=== PATIENT | male | born 1970 | race Two or more races ===

== ENCOUNTER 2024-05-27 11:50 | Day surgery (SDC) | payer MEDICAID, SELFPAY ==
[2024-05-26 14:59] VITALS: BMI 32.3
[2024-05-27] VITALS (9 sets, daily range): BP systolic 102–136; BP diastolic 57–85; PULSE 65–74; RESP 12–18; TEMP 36.5–36.6; O2SAT 92–97; BMI 32.3
[2024-05-27 13:12] LABS: Alanine Aminotransferase 39 U/L (10-49); Albumin, Serum 4.5 gm/dL (3.5-5.0); Albumin/Globulin Ratio 1.6 (1.2-2.2); Alkaline Phosphatase 112 U/L (46-116); Anion Gap 10 (7-16); Aspartate Amino Transferase 35 U/L (0-34); BUN/Creatinine Ratio 16 Ratio (12-20); Bilirubin,Total 0.7 mg/dL (0.3-1.2); Blood Urea Nitrogen 13 mg/dL (9-23); Calcium 9.7 mg/dL (8.3-10.6); Calcium (Corrected) 9.7 mg/dL (8.5-10.1); Carbon Dioxide 27.3 mMol/L (20.0-31.0); Chloride 106 mMol/L (98-107); Creatinine (Component) 0.8 mg/dL (0.6-1.3); Estimated Creatinine Clearance 115.2 mL/min (>60); Globulin 2.8 gm/dL (2.3-3.5); Glucose 152 mg/dL (74-106); Osmolality,Calculated 288 (275-295); Potassium 3.6 mMol/L (3.4-5.1); Sodium 143 mMol/L (136-145); Total Protein 7.3 gm/dL (5.7-8.2); eGFR > 60 See Note
--- NOTE | 2024-05-27 13:59 | SUR.PHASEII ---
1341 patient is awake, alert, breathing unlabored, s/p colonoscopy under MAC anesthesia. Report received from Ema LIN and Dr. Phelps, patient passing gas.
--- NOTE | 2024-05-27 14:49 | SUR.PHASEII ---
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
== END 2024-05-27 14:47 | disposition home or self-care (01) ==
PROVIDERS: Anesthesiology; Referring Provider Surgery; Visit Provider Surgery
PROC: 0DBE8ZX Excision of Large Intestine, Via Natural or Artificial Opening Endoscopic, Diagnostic (ICD-10-PCS; CPT 45380; principal; 2024-05-27 14:30)
DX: Z12.11 Encounter for screening for malignant neoplasm of colon (principal)
CPT/HCPCS: 45378; 36415; 80053; A4217; A4649

== ENCOUNTER 2024-09-21 15:03 | Emergency (ER) | payer MEDICAID, SELFPAY ==
[2024-09-21 15:11] VITALS: BP 134/87; PULSE 73; RESP 20; TEMP 37.2; O2SAT 95
--- NOTE | 2024-09-21 15:39 | EDNOTE_ITS ---
ED Recheck Abnl Lab Rx-RME/HPI General Chief Complaint: Recheck/Abnormal Lab/Rx Stated Complaint: PRESCRIPTION MEDICATIONS RAN OUT Time Seen by Provider: 09/21/24 15:14 Arrival date/time: 09/21/24 15:03 54-year-old male with a history of polysubstance abuse acute renal failure hypertension and hyperlipidemia reports for prescription refill. Patient states that he ran out of his medication on 16 September and has not been able to get them refilled with issues with the pharmacy. He currently denies any suicidal ho micidal ideation shortness of breath chest pain dizziness blurry vision ringing ears nausea or vomiting. Patient has no other concerns today with the exception of filling prescriptions Limitations: no limitations Related Data Home Medications ?Medication ?Instructions ?Recorded ?Confirmed amlodipine 5 mg tablet 5 mg PO .QHS 05/27/24 atorvastatin 20 mg tablet 20 mg PO QDAY 05/27/2405/27 diclofenac sodium 1 % topical gel 2.25 inch topical BI D 05/27/24 05/27/24 haloperidol 10 mg tablet 10 mg PO TID 05/27/24 hydroxyzine pamoate 50 mg capsule 50 mg PO TID 5 05/27/24 metformin 500 mg tablet 500 mg PO BID 05/27/2405/27 mirtazapine 30 mg tablet 30 mg PO .QHS 05/27/2405/27 olanzapine 20 mg tablet 20 mg PO .QHS 05/27/2405/27 paroxetine HCl 12.5 mg 25 mg PO QAM 05/27/24 tablet,extended release 24 hr propranolol 20 mg tablet 20 mg PO TID 05/27/24 trihexyphenidyl 2 mg tablet 2 mg PO .QHS 05/27/2404/30 Previous Rx's ?Medication ?Instructions ?Recorded amlodipine 5 mg tablet 5 mg PO QDAY #30 tabs atorvastatin 20 mg tablet 20 mg PO QDAY #30 tabs 09/21 mirtazapine 30 mg tablet 30 mg PO .QHS #30 tabs 09/21 olanzapine 20 mg tablet 20 mg PO QDAY #30 tabs 09/21 paroxetine HCl 12.5 mg 12.5 mg PO QAM #30 tabs 08/28 10/21 tablet,extended release 24 hr trihexyphenidyl 2 mg tablet 2 mg PO BID #60 tabs 09/21 Allergies Allergy/AdvReac Type Severity Reaction Status Date / Time No Known Allergies Allergy Verified 09/21/24 15:07 Review of Systems Constitutional Constitutional: Denies chills, Denies fever(s) and Denies headache(s) ENT Ears, Nose, Mouth, and Throat: Denies headache(s) Cardiovascular Cardiovascular: Denies chest pain and Denies dyspnea Respiratory Respiratory: Denies dyspnea and Denies hemoptysis Gastrointestinal Gastrointestinal: Denies nausea and Denies vomiting Musculoskeletal Musculoskeletal: Denies back pain and Denies myalgias Integumentary/Breasts Skin/Breast: Denies sores and Denies wounds Neurologic Neurologic: Denies confusion and Denies headache(s) Psychiatric Psychiatric: Denies confusion, Denies homicidal ideation and Denies suicidal ideation Hematologic/Lymphatic Hematologic/Lymphatic: Denies easy bleeding and Denies easy bruising Past Medical History Past Medical History NEUROLOGIC: Negative Seizures CARDIAC: Negative Congestive Heart Failure RESPIRATORY: Negative Chronic Obstructive Pulmonary Disease (COPD) GENITOURINARY: Negative Renal Disease ENDOCRINE: Positive Diabetes Mellitus Type 2; Negative Diabetes Mellitus Type 1 HEMATOLOGIC: Negative Blood Disorders, Anemia or Clotting Problems OTHER HISTORY: Positive Shingles, Chicken Pox, Measles and Mumps; Negative Hospitalization, Down Syndrome, Developmental Delay, Falls, Blood Transfusions, Anesthesia Reactions, Human Immunodeficiency Virus (HIV) or Cancer Family History FAMILY HISTORY: Positive Family Cardiac Disorders; Negative Family Psychiatric Problems, Family Respiratory Disorders or Family Gastrointestinal Problems Surgical History SURGICAL: Negative Abdominal Surgery Social History SMOKING STATUS: Never smoker SUBSTANCE USE: methamphetamine ED Exam General Limitations: Present no limitations General appearance: Present alert and in no apparent distress Head Head exam: Present atraumatic Eye Eye exam: Present normal appearance, PERRL and EOMI ENT ENT exam: Present normal exam, normal oropharynx and mucous membranes moist Neck Neck exam: Present normal inspection, full ROM and trachea midline Chest Chest inspection: Present normal inspection and symmetric chest wall rise Respiratory Respiratory exam: Present normal lung sounds bilaterally Cardiovascular Cardiovascular exam: Present regular rate, normal rhythm and normal heart sounds Abdominal Exam Abdominal exam: Present soft and normal bowel sounds Extremities Exam Extremities exam: Present normal inspection and full ROM Back Exam Back exam: Present normal inspection and full ROM Neurological Exam Neurological exam: Present alert, oriented X3 and CN II-XII intact Psychiatric Psychiatric exam: Present normal affect and normal mood Skin Skin exam: Present warm, dry, intact and normal color Course Course Course Narrative: 54-year-old male with a history of psych disorders hypertension and hyperlipidemia I have advised patient that I will refill 30-day supply of all medications however he must follow-up with his primary care provider for future prescriptions patient verbalized understanding Quality Measures none Vital Signs Vital signs: Vital Signs Temperature 99.0 F 09/21/24 15:11 Pulse Rate 73 09/21/24 15:11 Respiratory Rate 20 09/21/24 15:11 Blood Pressure 134/87 H 09/21/24 15:11 Pulse Oximetry (%) 95 09/21/24 15:11 Oxygen Delivery Method Room Air 09/21/24 15:11 Recheck / Abnormal Lab / Rx Patient data External records reviewed:: None Clinical information provided by:: patient Social determinants that could affect healthcare access:: none Patient has the following chronic illnesses:: Depression, hypertension, hyperlipidemia How is presenting disease/condition affected by chronic disease/condition?: caused by Evaluation data The following diagnostics were reviewed and interpreted by me:: other (specify) Lab and/or radiology exams considered but not ordered:: N/A Interpretation Summary: N/A Medications / Prescriptions Medications or Prescriptions considered but not ordered:: N/A Medication administrations:: N/A Consultations Consultation(s) initiated? (list below): No Diagnosis Recheck Differential Diagnosis: encounter for medication refill Most likely diagnosis given after review of the tests above:: Encounter for medication refill Admission Indicated Admission indicated?: not indicated Admission Request Was there a request for admission?: No Disposition Plan Disposition Plan: Discharge Discharge Attestation Discharge Attestation: The patient and all family members were given an opportunity to ask questions and understood the discharge instructions. Discharge instructions specifically effects, indications for sooner follow up or return to the emergency department, and the expected course of current diagnosis. Patient condition: Stable Discharge Plan Plan Patient Disposition: HOME (Self Care) Prescriptions/Referrals Prescriptions/Med Rec: New olanzapine 20 mg tablet 20 mg PO QDAY Qty: 30 0RF trihexyphenidyl 2 mg tablet 2 mg PO BID Qty: 60 0RF Rx Instructions: give with food (meal/snack) amlodipine 5 mg tablet 5 mg PO QDAY Qty: 30 0RF atorvastatin 20 mg tablet 20 mg PO QDAY Qty: 30 0RF mirtazapine 30 mg tablet 30 mg PO .QHS Qty: 30 0RF paroxetine HCl 12.5 mg tablet extended release 24 hr 12.5 mg PO QAM Qty: 30 0RF No Action paroxetine HCl 12.5 mg tablet extended release 24 hr 25 mg PO QAM hydroxyzine pamoate 50 mg capsule 50 mg PO TID haloperidol 10 mg tablet 10 mg PO TID propranolol 20 mg tablet 20 mg PO TID metformin 500 mg tablet 500 mg PO BID amlodipine 5 mg tablet 5 mg PO .QHS diclofenac sodium 1 % gel 2.25 inch TOPICAL BID mirtazapine 30 mg tablet 30 mg PO .QHS trihexyphenidyl 2 mg tablet 2 mg PO .QHS olanzapine 20 mg tablet 20 mg PO .QHS atorvastatin 20 mg tablet 20 mg PO QDAY Problem List Clinical Impression: Hypertension, Hyperlipidemia, Depression Patient/Caregiver Discharge Instructions Discharge Activity: activity as tolerated Education Materials: Blood Pressure Check Steps Additional Instructions: Take medication as directed and follow-up with your primary care provider as discussed Print Language: [place] Islander Stand Alone Forms: Charity Award Info., Patient Portal Info Letter
== END 2024-09-21 15:58 | disposition home or self-care (01) ==
PROVIDERS: Emergency Provider Family Medicine; PCP Family Medicine
DX: Z76.0 Encounter for issue of repeat prescription (principal); I10 Essential (primary) hypertension; E78.5 Hyperlipidemia, unspecified; F32.A Depression, unspecified
CPT/HCPCS: 99281

== ENCOUNTER 2024-09-27 15:18 | Emergency (ER) | payer MEDICAID, SELFPAY ==
[2024-09-27] VITALS (8 sets, daily range): BP systolic 112–157; BP diastolic 69–98; PULSE 64–81; RESP 14–22; TEMP 36.6–36.8; O2SAT 94–99; BMI 31.1
--- NOTE | 2024-09-27 15:57 | EKG_ITS ---
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
--- NOTE | 2024-09-27 15:57 | XR_ITS ---
Examination: PA lateral chest 2 views TECHNIQUE: Upright PA and lateral chest 2 views Date and time: September 27, 2024 1644 hours INDICATIONS: Shortness of breath today FINDINGS: Normal heart size. Lungs are clear. The osseous structures are intact IMPRESSION: No active disease
--- NOTE | 2024-09-27 16:07 | PD.EDRME ---
Rapid Medical Screening Exam RME Arrival date/time: 09/27/24 15:18 This is a 54-year-old male that comes in with complaints of dizziness feeling lightheaded after cleaning a pool outside. Patient also complains of shortness of breath. Patient denies chest pain. Patient states he was feeling fine prior to this event happening. Patient has a history of high blood pressure hyperlipidemia depression anxiety and methamphetamine use. Patient denies drug use. I have greeted and performed a focused initial assessment of this patient. Initial appropriate labs ordered at this time. A comprehensive ED assessment and evaluation of the patient and analysis of all test and completion of medical decision making process will be conducted by additional ED provider. Chief Complaint: Weakness Time Seen by Provider: 09/27/24 15:43 Vital signs: Vital Signs Temperature 98.2 F 09/27/24 15:49 Pulse Rate 81 09/27/24 15:49 Respiratory Rate 19 09/27/24 15:49 Blood Pressure 126/85 H 09/27/24 15:49 Pulse Oximetry (%) 99 09/27/24 15:49 Oxygen Delivery Method Room Air 09/27/24 15:49
--- NOTE | 2024-09-27 16:26 | PD.EDDIZZY ---
ED Dizzyness RME/HPI General Chief Complaint: Weakness Stated Complaint: WEAKNESS Time Seen by Provider: 09/27/24 15:43 Arrival date/time: 09/27/24 15:18 RME / HPI RME / HPI Narrative: 09/27/24 15:18 This is a 54-year-old male that comes in with complaints of dizziness feeling lightheaded after cleaning a pool outside. Patient also complains of shortness of breath. Patient denies chest pain. Patient states he was feeling fine prior to this event happening. Patient has a history of high blood pressure hyperlipidemia depression anxiety and methamphetamine use. Patient denies drug use. I have greeted and performed a focused initial assessment of this patient. Initial appropriate labs ordered at this time. A comprehensive ED assessment and evaluation of the patient and analysis of all test and completion of medical decision making process will be conducted by additional ED provider. DR. TAVAREZ MAIN ED EVALUATION: 54 year old male with history of hypertension, diabetes, hyperlipidemia, anxiety presents to the ED for acute onset dizziness that began earlier today while cleaning his swimming pool in preparation for a family gathering. He describes the dizziness as a spinning sensation that came on suddenly. Shortly after, he experienced nausea and vomited once. He also reports associated shortness of breath and a sensation of facial puffiness. He denies chest pain, diaphoresis, or prior similar episodes. Patient reports he has been drinking water throughout the day. No other associated symptoms reported. Patient denied wearing a hat while in the sun. Related Data Home Medications ?Medication ?Instructions ?Recorded ?Confirmed amlodipine 5 mg tablet 5 mg PO .QHS 05/27/24 05/27/24 atorvastatin 20 mg tablet 20 mg PO QDAY 05/27/24 05/27/24 diclofenac sodium 1 % topical gel 2.25 inch topical BID 05/27/24 05/27/24 haloperidol 10 mg tablet 10 mg PO TID 05/27/24 05/27/24 hydroxyzine pamoate 50 mg capsule 50 mg PO TID 05/27/24 05/27/24 metformin 500 mg tablet 500 mg PO BID 05/27/24 05/27/24 mirtazapine 30 mg tablet 30 mg PO .QHS 05/27/24 05/27/24 olanzapine 20 mg tablet 20 mg PO .QHS 05/27/24 05/27/24 paroxetine HCl 12.5 mg 25 mg PO QAM 05/27/24 05/27/24 tablet,extended release 24 hr propranolol 20 mg tablet 20 mg PO TID 05/27/24 05/27/24 trihexyphenidyl 2 mg tablet 2 mg PO .QHS 05/27/24 05/27/24 Previous Rx's ?Medication ?Instructions ?Recorded amlodipine 5 mg tablet 5 mg PO QDAY #30 tabs 09/21/24 atorvastatin 20 mg tablet 20 mg PO QDAY #30 tabs 09/21/24 mirtazapine 30 mg tablet 30 mg PO .QHS #30 tabs 09/21/24 olanzapine 20 mg tablet 20 mg PO QDAY #30 tabs 09/21/24 paroxetine HCl 12.5 mg 12.5 mg PO QAM #30 tabs 09/21/24 tablet,extended release 24 hr trihexyphenidyl 2 mg tablet 2 mg PO BID #60 tabs 09/21/24 Allergies Allergy/AdvReac Type Severity Reaction Status Date / Time No Known Allergies Allergy Verified 09/27/24 15:21 Review of Systems Review of Systems Narrative Review of Systems: Gen: No fever, no chills, no weight loss, +dizziness EYES: No discharge, no visual changes, no pain HEENT: No ear pain, no congestion, no sore throat PULM: +shortness of breath, no cough, no congestion CV: No chest pain, no palpitations, no chest tightness GI: + nausea, + vomiting, no diarrhea, no pain, no constipation : No frequency, no urgency,? no dysuria Musc/skel: No joint pain, no back pain Skin: No rash, no ecchymosis, no lesions Neuro: No weakness, no headache Past Medical History Past Medical History ENDOCRINE: Positive Diabetes Mellitus Type 2 OTHER HISTORY: Positive Chicken Pox, Measles and Mumps Family History FAMILY HISTORY: Positive Family Cardiac Disorders Surgical History SURGICAL: Negative Abdominal Surgery Social History SMOKING STATUS: Current some day smoker SUBSTANCE USE: methamphetamine ED Exam Narrative Physical exam: GENERAL APPEARANCE: Slight lethargy, oriented x4, no diaphoresis, nontoxic appearing HEENT: NC, AT. MMM. EOMI, clear conjunctiva, oropharynx clear. NECK: Supple without lymphadenopathy. No stiffness or restricted ROM. HEART: Normal rate and regular rhythm, normal S1/S1, no m/r/g LUNGS: CTAB, moving air well. No crackles or wheezes are heard. ABDOMEN: Soft, nontender, nondistended with good bowel sounds heard. BACK: No midline C/T/L spine pain or deformity, No CVAT, no obvious deformity. EXTREMITIES: Without cyanosis, clubbing or edema. MUSCULOSKELETAL: FROM of all major joints, no chest tenderness NEUROLOGICAL: Grossly nonfocal. Slight lethargy, oriented x4, moving all 4 extremities. CN not formally tested but appear grossly intact. Skin: Warm and dry, no diaphoresis, without any rash. Course Quality Measures none Orders Category Date Time Status EKG (ED ONLY) *Do not use* NOW Care 09/27/24 15:57 Completed EKG (ED ONLY) *Do not use* NOW Care 09/27/24 16:22 Completed EKG (ED Only) Stat Exams 09/27/24 15:57 Draft EKG (ED Only) Stat Exams 09/27/24 16:30 Draft XR chest 2V Stat Exams 09/27/24 15:57 Completed BNP [B-Type Natriuretic Peptide] Stat Lab 09/27/24 16:50 Completed CBC Stat Lab 09/27/24 16:50 Completed Comprehensive Metabolic Panel Stat Lab 09/27/24 16:50 Completed Drug Screen,Urine Stat Lab 09/27/24 16:23 Completed Troponin I Stat Lab 09/27/24 16:50 Completed Troponin I Stat Lab 09/27/24 19:00 Ordered Aspirin Med 09/27/24 16:21 Discontinued 325 mg PO X1 ONE Ondansetron Inj [Zofran Inj] Med 09/27/24 16:31 Discontinued 4 mg .ROUTE .STK-MED ONE Ondansetron Inj [Zofran Inj] Med 09/27/24 16:30 Discontinued 4 mg IVP X1 ONE Sodium Chloride 0.9% 1000 ml [Ns] 1,000 ml Med 09/27/24 16:21 Discontinued IV 999 mls/hr Sodium Chloride 0.9% 1000 ml [Ns] 1,000 ml Med 09/27/24 18:00 Active IV 999 mls/hr Reevaluation(s) Reevaluation #1: Patient reports feeling improved. He is requesting soda. At this time plan to repeat trop at 7PM and DC home if negative. ? Time: 17:57 Vital Signs Vital signs: Vital Signs Temperature 98.2 F 09/27/24 15:49 Pulse Rate 81 09/27/24 15:49 Respiratory Rate 19 09/27/24 15:49 Blood Pressure 126/85 H 09/27/24 15:49 Pulse Oximetry (%) 99 09/27/24 15:49 Oxygen Delivery Method Room Air 09/27/24 15:49 Pulse ox is 99% on room air which is adequate. Dizziness MDM Narrative MDM Narrative:: Lizbet Castro am scribing for and in the presence of Dr. Tavarez. Patient data External records reviewed:: [facility] previous records (I reviewed ED visit on 09/21/2024) Clinical information provided by:: patient Social determinants that could affect healthcare access:: mental health Patient has the following chronic illnesses:: hypertension, diabetes, hyperlipidemia, anxiety How is presenting disease/condition affected by chronic disease/condition?: exacerbated by Evaluation data The following diagnostics were reviewed and interpreted by me:: lab results, radiology exam(s) and EKG tracing(s) (EKG #1 09/27/2024 @ 1612 shows sinus rhythm, rate 72, slight inferior ST elevation. EKG #2 09/27/2024 @ 1638 shows sinus rhythm, rate 64, aVF appears improved. ) Lab and/or radiology exams considered but not ordered:: None Interpretation Summary: Ordering Physician: Marnie West NP Date of Service: 09/27/24 Procedure(s): XR chest 2V Accession Number(s): [id number] cc: Abhinav Lam MD; Peter Martin MD; Marnie West NP~ Examination: PA lateral chest 2 views TECHNIQUE: Upright PA and lateral chest 2 views Date and time: September 27, 2024 1644 hours INDICATIONS: Shortness of breath today FINDINGS: Normal heart size. Lungs are clear. The osseous structures are intact IMPRESSION: No active disease Dictated By: Peter Martin MD Signed By: <Electronically signed by Peter Martin MD in OV> 09/27/24 1721 Medications / Prescriptions Medications or Prescriptions considered but not ordered:: None Medication administrations:: Medication Administration History Sodium Chloride (Ns) 1,000 mls @ 999 mls/hr IV .Q1H1M ONE Stop: 09/27/24 19:00 Last Admin: 09/27/24 18:10 Dose: 999 mls/hr Documented By: CG Discontinued Medications Aspirin (Aspirin 325 Mg Tablet) 325 mg PO X1 ONE Stop: 09/27/24 16:22 Last Admin: 09/27/24 16:32 Dose: 325 mg Documented By: CG Sodium Chloride (Ns) 1,000 mls @ 999 mls/hr IV .Q1H1M ONE Stop: 09/27/24 17:21 Last Infusion: 09/27/24 17:33 Dose: Infused Documented By: Admin: 09/27/24 16:31 Dose: 999 mls/hr Documented By: CG Ondansetron HCl (Ondansetron Inj 2 Mg/Ml Inj 2 Ml) 4 mg IVP X1 ONE; Protocol Stop: 09/27/24 16:31 Last Admin: 09/27/24 16:38 Dose: 4 mg Documented By: CG Ondansetron HCl (Ondansetron Inj 2 Mg/Ml Inj 2 Ml) Confirm Administered Dose 4 mg .ROUTE .STK-MED ONE Stop: 09/27/24 16:32 Last Admin: 09/27/24 16:39 Dose: 4 mg Documented By: CG See above Consultations Consultation(s) initiated? (list below): No Diagnosis Dizziness Differential Diagnosis: benign paroxysmal positional vertigo, orthostatic hypotension and other (ID) Most likely diagnosis given after review of the tests above:: Heat exhaustion Admission Indicated Admission indicated?: not indicated Admission Request Was there a request for admission?: No Disposition Plan Disposition Plan: Discharge Discharge Attestation Discharge Attestation: The patient and all family members were given an opportunity to ask questions and understood the discharge instructions. Discharge instructions specifically effects, indications for sooner follow up or return to the emergency department, and the expected course of current diagnosis. Patient condition: Stable Discharge Plan Plan Patient Disposition: HOME (Self Care) Prescriptions/Referrals Prescriptions/Med Rec: No Action olanzapine 20 mg tablet 20 mg PO QDAY Qty: 30 0RF trihexyphenidyl 2 mg tablet 2 mg PO BID Qty: 60 0RF Rx Instructions: give with food (meal/snack) amlodipine 5 mg tablet 5 mg PO QDAY Qty: 30 0RF atorvastatin 20 mg tablet 20 mg PO QDAY Qty: 30 0RF mirtazapine 30 mg tablet 30 mg PO .QHS Qty: 30 0RF paroxetine HCl 12.5 mg tablet extended release 24 hr 12.5 mg PO QAM Qty: 30 0RF paroxetine HCl 12.5 mg tablet extended release 24 hr 25 mg PO QAM hydroxyzine pamoate 50 mg capsule 50 mg PO TID haloperidol 10 mg tablet 10 mg PO TID propranolol 20 mg tablet 20 mg PO TID metformin 500 mg tablet 500 mg PO BID amlodipine 5 mg tablet 5 mg PO .QHS diclofenac sodium 1 % gel 2.25 inch TOPICAL BID mirtazapine 30 mg tablet 30 mg PO .QHS trihexyphenidyl 2 mg tablet 2 mg PO .QHS olanzapine 20 mg tablet 20 mg PO .QHS atorvastatin 20 mg tablet 20 mg PO QDAY Referrals: Abhinav Lam MD [Primary Care Provider] - In 1 week Problem List Clinical Impression: Heat exhaustion Patient/Caregiver Discharge Instructions Education Materials: ED Heat Exhaustion Additional Instructions: If you are under the sun it also be useful to wear a hat particularly with a wide brim. Drink plenty of fluids. For the next 24 hours try to rest in the shade and not have contact with sun Print Language: [place]oth[place] Stand Alone Forms: Charity Award Info., Patient Portal Info Letter
--- NOTE | 2024-09-27 16:30 | EKG_ITS ---
[facility] Test Date: 2024-09-27 Pat Name: BRIDGET DUFFY Department: Room: - Gender: Male Manager Oncology: : 1970 Requested By: Pineda Jacques Order Number: [id number] Reading MD: Pineda Jacques Measurements Intervals [place] Rate: 72 P: 43 [place]: 167 QRS: 30 QRSD: 83 T: 29 QT: 371 QTc: 408 Interpretive Statements SINUS RHYTHM ST ELEVATION, CONSIDER INFERIOR INJURY [MARKED ST ELEVATION W/O NORMALLY INFLECTED T-WAVE IN II/aVF] ACUTE [place] Compared to ECG 09/27/2024 16:10:44 No significant changes /store/S0/[id number].pdf
[2024-09-27] MEDS: SODIUM CHLORIDE 0.9% 1000 ML 1,000 ML 999 ML IV ×2 (16:31→18:10)
[2024-09-27] MEDS: Aspirin 325 MG TABLET PO (16:32)
[2024-09-27] MEDS: ONDANSETRON INJ 2 MG/ML INJ 2 ML 4 MG IVP (16:38)
[2024-09-27] MEDS: ONDANSETRON INJ 2 MG/ML INJ 2 ML 4 MG (16:39)
[2024-09-27 16:43] LABS: Amphetamine/Methamp Scrn,U Negative (Negative); Barbiturate Screen,Urine Negative (Negative); Benzodiazepines Screen,Urine Negative (Negative); Benzoylecgonine Screen, Ur Negative (Negative); Fentanyl Screen,Urine Negative (Negative); Opiate Screen,Urine Negative (Negative); THC Screen,Urine Negative (Negative)
[2024-09-27 17:03] LABS: Basophils % (Auto) 0 % (0-2.5); Eosinophils # (Auto) 0.1 Thou/mm3 (0.0-0.5); Eosinophils % (Auto) 2 % (0-10); Hemoglobin 14.7 g/dL (13.5-16.0); Immature Granulocytes % (Auto) 1 % (0-0); Immature Granulocytes Auto 0.04 Thou/mm3 (0.00-0.00); Lymphocytes # (Auto) 2.1 Thou/mm3 (1.0-4.8); Lymphocytes % (Auto) 26 % (10-50); Mean Corpuscular HGB Conc 37.7 g/dl (31.0-37.0); Mean Corpuscular Hemoglobin 31.1 pg (25.0-35.0); Mean Corpuscular Volume 83 fL (80-100); Monocytes # (Auto) 0.5 Thou/mm3 (0.0-0.8); Monocytes % (Auto) 7 % (0-12); Neutrophils # (Auto) 5.4 Thou/mm3 (1.8-7.7); Neutrophils % (Auto) 65 % (37-80); Nucleated Red Blood Cell % 0 /100 WBC (0); Platelet Count 228 Thou/mm3 (140-440); RDW Standard Deviation 37.5 fL (35.1-43.9); Red Blood Count 4.72 Miln/mm3 (4.50-5.90); White Blood Count 8.2 Thou/mm3 (3.8-10.6)
[2024-09-27 17:20] LABS: Alanine Aminotransferase 39 U/L (10-49); Albumin, Serum 4.5 gm/dL (3.5-5.0); Albumin/Globulin Ratio 1.6 (1.2-2.2); Alkaline Phosphatase 134 U/L (46-116); Anion Gap 11 (7-16); Aspartate Amino Transferase 35 U/L (0-34); BUN/Creatinine Ratio 7 Ratio (12-20); Bilirubin,Total 0.7 mg/dL (0.3-1.2); Blood Urea Nitrogen 7 mg/dL (9-23); Calcium 9.1 mg/dL (8.3-10.6); Calcium (Corrected) 9.1 mg/dL (8.5-10.1); Chloride 103 mMol/L (98-107); Globulin 2.8 gm/dL (2.3-3.5); Glucose 221 mg/dL (74-106); Osmolality,Calculated 284 (275-295); Potassium 3.9 mMol/L (3.4-5.1); Sodium 140 mMol/L (136-145); Total Protein 7.3 gm/dL (5.7-8.2); Troponin I < 0.002 ng/mL (0.0-0.045); eGFR > 60 See Note
[2024-09-27 17:39] LABS: B-Type Natriuretic Peptide < 20 pg/mL (0-100)
[2024-09-27 19:21] LABS: Troponin I < 0.002 ng/mL (0.0-0.045)
== END 2024-09-27 19:54 | disposition home or self-care (01) ==
PROVIDERS: Nurse Practitioner Family; Emergency Provider Emergency Medicine; PCP Family Medicine
DX: R53.1 Weakness (principal); R53.83 Other fatigue; R06.02 Shortness of breath; R94.31 Abnormal electrocardiogram [ECG] [EKG]; I10 Essential (primary) hypertension; E78.5 Hyperlipidemia, unspecified; F17.210 Nicotine dependence, cigarettes, uncomplicated
CPT/HCPCS: 36415; 71046; 80053; 80307; 83880; 84484; 85025; 93005; 96360; 96361; 99284; J2405; J7030; A9270

== ENCOUNTER 2025-03-01 05:30 | Emergency (ER) | payer MEDICAID, SELFPAY ==
[2025-03-01 05:31] VITALS: BMI 30.3
[2025-03-01 05:34] VITALS: BP 133/74; PULSE 107; RESP 18; TEMP 36.7; O2SAT 97
--- NOTE | 2025-03-01 05:40 | XR_ITS ---
EXAMINATION: PA chest single view TECHNIQUE: Upright PA chest single view Date and time: March 06, 2025, 0546 hours INDICATIONS: Onset chest pain today. FINDINGS: Minimal prominence left ventricle. Mild vascular congestion. No lobar pneumonia or pulmonary edema. Osseous structures are intact IMPRESSION: No active disease
--- NOTE | 2025-03-01 05:41 | EKG_ITS ---
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
--- NOTE | 2025-03-01 05:41 | PD.EDRME ---
Rapid Medical Screening Exam E Arrival date/time: 03/01/25 05:30 This is a case of 55-year-old male who came in in the emergency room due to chest pain and shortness of breath patient felt anxious denies any suicidal homicidal ideation no hallucination Chief Complaint: Anxiety Vital signs: Vital Signs Temperature 98.1 F 03/01/25 05:34 Pulse Rate 107 H 03/01/25 05:34 Respiratory Rate 18 03/01/25 05:34 Blood Pressure 133/74 H 03/01/25 05:34 Pulse Oximetry (%) 97 03/01/25 05:34 Oxygen Delivery Method Room Air 03/01/25 05:34 Exam: Awake alert oriented x 4 no focal deficit GCS 15/15 clear breath sound normal rate regular rhythm no murmur patient have anxiety Clinical Impression: Chest pain anxiety
[2025-03-01 06:14] LABS: Basophils # (Auto) 0.0 Thou/mm3 (0.0-0.2); Basophils % (Auto) 0 % (0-2.5); Eosinophils # (Auto) 0.0 Thou/mm3 (0.0-0.5); Eosinophils % (Auto) 0 % (0-10); Hematocrit 38.3 % (41.0-53.0); Hemoglobin 13.5 g/dL (13.5-16.0); Immature Granulocytes Auto 0.04 Thou/mm3 (0.00-0.00); Lymphocytes # (Auto) 1.5 Thou/mm3 (1.0-4.8); Lymphocytes % (Auto) 14 % (10-50); Mean Corpuscular HGB Conc 35.2 g/dl (31.0-37.0); Mean Corpuscular Hemoglobin 30.5 pg (25.0-35.0); Mean Corpuscular Volume 87 fL (80-100); Monocytes # (Auto) 0.6 Thou/mm3 (0.0-0.8); Monocytes % (Auto) 5 % (0-12); Neutrophils # (Auto) 8.6 Thou/mm3 (1.8-7.7); Neutrophils % (Auto) 80 % (37-80); Nucleated Red Blood Cell # 0.00 Thou/mm3 (0.00-0.00); Nucleated Red Blood Cell % 0 /100 WBC (0); Platelet Count 292 Thou/mm3 (140-440); RDW Standard Deviation 41.0 fL (35.1-43.9); Red Blood Count 4.43 Miln/mm3 (4.50-5.90); White Blood Count 10.8 Thou/mm3 (3.8-10.6)
[2025-03-01 06:31] LABS: Alanine Aminotransferase 39 U/L (10-49); Albumin, Serum 5.2 gm/dL (3.5-5.0); Albumin/Globulin Ratio 2.0 (1.2-2.2); Alkaline Phosphatase 115 U/L (46-116); Anion Gap 12 (7-16); Aspartate Amino Transferase 42 U/L (0-34); B-Type Natriuretic Peptide 23 pg/mL (0-100); BUN/Creatinine Ratio 6 Ratio (12-20); Bilirubin,Total 0.8 mg/dL (0.3-1.2); Blood Urea Nitrogen 7 mg/dL (9-23); Calcium 10.0 mg/dL (8.3-10.6); Calcium (Corrected) 10.0 mg/dL (8.5-10.1); Carbon Dioxide 24.7 mMol/L (20.0-31.0); Chloride 101 mMol/L (98-107); Creatinine (Component) 1.1 mg/dL (0.6-1.3); Estimated Creatinine Clearance 80.4 mL/min (>60); Globulin 2.6 gm/dL (2.3-3.5); Glucose 116 mg/dL (74-106); Osmolality,Calculated 274 (275-295); Potassium 3.6 mMol/L (3.4-5.1); Sodium 138 mMol/L (136-145); Total Protein 7.8 gm/dL (5.7-8.2); Troponin I < 0.020 ng/mL (0.0-0.045); eGFR > 60 See Note
[2025-03-01 07:17] LABS: Collection Type, Urine Clean Catch
[2025-03-01 07:35] LABS: Bacteria,Urine Rare; Bilirubin,Urine Negative (Negative); Blood,Urine Negative (Negative); Clarity,Urine Clear (Clear/Hazy); Color,Urine Yellow (Lt Yel-Yel); Glucose, Urine Negative (Negative); Ketones,Urine 1+ (Negative); Leukocyte Esterase,Urine Negative (Negative); Nitrite,Urine Negative (Negative); PH,Urine 6.0 (5.0-7.0); Protein,Urine Trace (Neg - Trace); RBC,Urine 1 /hpf (0-3); Specific Gravity,Urine 1.025 (1.001-1.035); Squamous Epithelial Cell,Urine < 1 /hpf (0-5); Urobilinogen,Urine Negative mg/dL (0.0-1.0); WBC,Urine 2 /hpf (0-5)
--- NOTE | 2025-03-01 08:41 | EDNOTE_ITS ---
<Statement entered by Magdalene Cardenas MD - 03/03/25 17:56> As co-signing physician, I was present and available for consult prn. I concur with the plan and care as documented by the midlevel provider. ED Chest Pain RME/HPI General Chief Complaint: Anxiety Stated Complaint: ANXIETY Time Seen by Provider: 03/01/25 06:11 Source: patient Arrival date/time: 03/01/25 05:30 54-year-old male with a history of hypertension, hyperlipidemia, type 2 diabetes, presents to the emergency room with a chief complaint of chest pain, palpitations, shortness of breath x 1 day Mode of arrival: ambulatory Limitations: no limitations RME / HPI RME / HPI narrative: 03/01/25 05:30 This is a case of 55-year-old male who came in in the emergency room due to chest pain and shortness of breath patient felt anxious denies any suicidal homicidal ideation no hallucination Exam: Awake alert oriented x 4 no focal deficit GCS 15/15 clear breath sound normal rate regular rhythm no murmur patient have anxiety Impression: Chest pain anxiety Related Data Home Medications ?Medication ?Instructions ?Recorded ?Confirmed amlodipine 5 mg tablet 5 mg PO .QHS 05/27/24 atorvastatin 20 mg tablet 20 mg PO QDAY 05/27/2405/27 diclofenac sodium 1 % topical gel 2.25 inch topical BI D 05/27/24 05/27/24 haloperidol 10 mg tablet 10 mg PO TID 05/27/24 hydroxyzine pamoate 50 mg capsule 50 mg PO TID 5 05/27/24 metformin 500 mg tablet 500 mg PO BID 05/27/2405/27 mirtazapine 30 mg tablet 30 mg PO .QHS 05/27/2405/27 olanzapine 20 mg tablet 20 mg PO .QHS 05/27/2405/27 paroxetine HCl 12.5 mg 25 mg PO QAM 05/27/24 tablet,extended release 24 hr propranolol 20 mg tablet 20 mg PO TID 05/27/24 trihexyphenidyl 2 mg tablet 2 mg PO .QHS 05/27/2404/30 Previous Rx's ?Medication ?Instructions ?Recorded amlodipine 5 mg tablet 5 mg PO QDAY #30 tabs atorvastatin 20 mg tablet 20 mg PO QDAY #30 tabs 09/21 mirtazapine 30 mg tablet 30 mg PO .QHS #30 tabs 09/21 olanzapine 20 mg tablet 20 mg PO QDAY #30 tabs 09/21 paroxetine HCl 12.5 mg 12.5 mg PO QAM #30 tabs 08/28 10/21 tablet,extended release 24 hr trihexyphenidyl 2 mg tablet 2 mg PO BID #60 tabs 09/21 Allergies Allergy/AdvReac Type Severity Reaction Status Date / Time No Known Allergies Allergy Verified 09/27/24 15:21 Review of Systems Review of Systems Systems Reviewed: All systems reviewed, normal except as documented Constitutional Constitutional: Reports system reviewed and no additional complaints, except as documented, Denies fatigue, Denies fever(s), Denies headache(s) and Denies weakness Eyes Eyes: Reports system reviewed and no additional complaints, except as documented, Denies blurry vision and Denies change in vision ENT Ears, Nose, Mouth, and Throat: Reports system reviewed and no additional c omplaints, except as documented, Denies otalgia, Denies headache(s), Denies nasal congestion, Denies throat swelling and Denies vertigo Cardiovascular Cardiovascular: Reports system reviewed and no additional complaints, except as documented, Reports chest pain, Reports dyspnea, Denies dyspnea on exertion and Reports palpitations Respiratory Respiratory: Reports system reviewed and no additional complaints, except as documented, Reports chest congestion, Reports cough, Reports dyspnea, Denies dyspnea on exertion and Denies wheezing Gastrointestinal Gastrointestinal: Reports system reviewed and no additional complaints, except as documented, Denies abdominal pain, Denies cramping, Denies nausea and Denies vomiting Genitourinary Genitourinary: Reports system reviewed and no additional complaints, except as documented, Denies dysuria and Denies hematuria Musculoskeletal Musculoskeletal: Reports system reviewed and no additional complaints, except as documented and Denies back pain Integumentary/Breasts Skin/Breast: Reports system reviewed and no additional complaints, except as documented and Denies wounds Neurologic Neurologic: Reports system reviewed and no additional complaints, except as documented, Denies confusion, Denies headache(s), Denies lack of coordination, Denies vertigo and Denies weakness Psychiatric Psychiatric: Reports system reviewed and no additional complaints, except as documented, Denies anxiety, Denies confusion, Denies depression, Denies paranoia, Denies suicidal ideation and Denies tactile hallucinations Endocrine Endocrine: Reports system reviewed and no additional complaints, except as documented, Denies fatigue and Reports palpitations Hematologic/Lymphatic Hematologic/Lymphatic: Reports system reviewed and no additional complaints, except as documented and Denies lymphadenopathy Allergic/Immunologic Allergic/Immunologic: Reports system reviewed and no additional complaints, except as documented, Denies throat swelling, Denies urticaria and Denies wheezing Past Medical History Past Medical History NEUROLOGIC: Negative Seizures CARDIAC: Negative Congestive Heart Failure RESPIRATORY: Negative Chronic Obstructive Pulmonary Disease (COPD) GENITOURINARY: Negative Renal Disease ENDOCRINE: Positive Diabetes Mellitus Type 2; Negative Diabetes Mellitus Type 1 HEMATOLOGIC: Negative Blood Disorders, Anemia or Clotting Problems OTHER HISTORY: Positive Shingles, Chicken Pox, Measles and Mumps; Negative Hospitalization, Down Syndrome, Developmental Delay, Falls, Blood Transfusions, Anesthesia Reactions, Human Immunodeficiency Virus (HIV) or Cancer Family History FAMILY HISTORY: Positive Family Cardiac Disorders; Negative Family Psychiatric Problems, Family Respiratory Disorders or Family Gastrointestinal Problems Surgical History SURGICAL: Negative Abdominal Surgery Social History SMOKING STATUS: Never smoker SUBSTANCE USE: methamphetamine ED Exam General Limitations: Present no limitations General appearance: Present alert and in no apparent distress Head Head exam: Present atraumatic Eye Eye exam: Present normal appearance, PERRL and EOMI ENT ENT exam: Present normal exam, normal oropharynx and mucous membranes moist Neck Neck exam: Present normal inspection, full ROM and trachea midline Chest Chest inspection: Present normal inspection and symmetric chest wall rise Respiratory Respiratory exam: Present normal lung sounds bilaterally; Absent respiratory distress, wheezes, stridor, accessory muscle use or prolonged expiratory phase Cardiovascular Cardiovascular exam: Present regular rate, normal rhythm, normal heart sounds, +S1 and +S2; Absent bradycardia, tachycardia, irregular rhythm, systolic murmur, diastolic murmur, rubs, gallop, clicks or JVD Abdominal Exam Abdominal exam: Present soft and normal bowel sounds Extremities Exam Extremities exam: Present normal inspection and full ROM Back Exam Back exam: Present normal inspection and full ROM Neurological Exam Neurological exam: Present alert, oriented X3 and CN II-XII intact Psychiatric Psychiatric exam: Present normal affect and normal mood Skin Skin exam: Present warm, dry, intact and normal color Course Quality Measures none Orders Category Date Time Status EKG (ED ONLY) *Do not use* NOW Care 03/01/25 05:41 Completed EKG (ED Only) Stat Exams 03/01/25 05:41 Ordered XR chest 1V Stat Exams 03/01/25 05:40 Completed BNP [B-Type Natriuretic Peptide] Stat Lab 03/01/25 06:01 Completed CBC Stat Lab 03/01/25 06:01 Completed Comprehensive Metabolic Panel Stat Lab 03/01/25 06:01 Completed Troponin I Stat Lab 03/01/25 06:01 Completed Urinalysis Stat Lab 03/01/25 06:22 Completed LORazepam [Ativan] Med 03/01/25 05:40 Discontinued 1 mg PO X1 ONE Vital Signs Vital signs: Vital Signs Temperature 98.1 F 03/01/25 05:34 Pulse Rate 107 H 03/01/25 05:34 Respiratory Rate 18 03/01/25 05:34 Blood Pressure 133/74 H 03/01/25 05:34 Pulse Oximetry (%) 97 03/01/25 05:34 Oxygen Delivery Method Room Air 03/01/25 05:34 PROCEDURES: EKG Interpretation #1: Date of EK03/01/25 EKG Impression: Normal sinus rhythm Chest Pain MDM Narrative MDM Narrative:: 54-year-old male with a history of hypertension, hyperlipidemia, type 2 diabetes, presents to the emergency room with a chief complaint of chest pain, palpitations, shortness of breath x 1 day Patient is hemodynamically stable and in no apparent distress Physical examination shows strong and regular rhythm S1 and S2 noted no edema no clicks no gallops no murmurs Lung sounds are clear bilaterally there is no wheezing or any abnormal breath sounds EKG shows sinus rhythm. CBC CMP troponin were all within normal limits Chest x-ray was negative for any acute findings Patient was discharged and educated to follow-up with primary care provider in the next 24 to 48 hours and return to the emergency room for any evidence of worsening signs or symptoms Patient data External records reviewed:: [facility] previous records Clinical information provided by:: patient Social determinants that could affect healthcare access:: substance use Patient has the following chronic illnesses:: No chronic illness How is presenting disease/condition affected by chronic disease/condition?: no chronic disease Evaluation data The following diagnostics were reviewed and interpreted by me:: lab results and radiology exam(s) Lab and/or radiology exams considered but not ordered:: Labs and radiology exams considered and ordered Interpretation Summary: FINDINGS: Minimal prominence left ventricle. Mild vascular congestion. No lobar pneumonia or pulmonary edema. Osseous structures are intact IMPRESSION: No active disease Medications / Prescriptions Medications or Prescriptions considered but not ordered:: Medication given Medication administrations:: Medication Administration History Discontinued Medications Lorazepam (Lorazepam 0.5 Mg Tablet) 1 mg PO X1 ONE Stop: 03/01/25 05:41 Last Admin: 03/01/25 05:47 Dose: 1 mg Documented By: FRANCIS Medication given Consultations Consultation(s) initiated? (list below): No Diagnosis Chest Pain Differential Diagnosis: stable angina, unstable angina pectoris, atypical chest pain, costochondritis and chest pain Most likely diagnosis given after review of the tests above:: Chest pain Admission Indicated Admission indicated?: not indicated Admission Request Was there a request for admission?: No Disposition Plan Disposition Plan: Discharge Discharge Attestation Discharge Attestation: The patient and all family members were given an opportunity to ask questions and understood the discharge instructions. Discharge instructions specifically effects, indications for sooner follow up or return to the emergency department, and the expected course of current diagnosis. Patient condition: Stable Discharge Plan Plan Patient Disposition: HOME (Self Care) Discharge Disposition comment: Stable Prescriptions/Referrals Prescriptions/Med Rec: No Action olanzapine 20 mg tablet 20 mg PO QDAY Qty: 30 0RF trihexyphenidyl 2 mg tablet 2 mg PO BID Qty: 60 0RF Rx Instructions: give with food (meal/snack) amlodipine 5 mg tablet 5 mg PO QDAY Qty: 30 0RF atorvastatin 20 mg tablet 20 mg PO QDAY Qty: 30 0RF mirtazapine 30 mg tablet 30 mg PO .QHS Qty: 30 0RF paroxetine HCl 12.5 mg tablet extended release 24 hr 12.5 mg PO QAM Qty: 30 0RF paroxetine HCl 12.5 mg tablet extended release 24 hr 25 mg PO QAM hydroxyzine pamoate 50 mg capsule 50 mg PO TID haloperidol 10 mg tablet 10 mg PO TID propranolol 20 mg tablet 20 mg PO TID metformin 500 mg tablet 500 mg PO BID amlodipine 5 mg tablet 5 mg PO .QHS diclofenac sodium 1 % gel 2.25 inch TOPICAL BID mirtazapine 30 mg tablet 30 mg PO .QHS trihexyphenidyl 2 mg tablet 2 mg PO .QHS olanzapine 20 mg tablet 20 mg PO .QHS atorvastatin 20 mg tablet 20 mg PO QDAY Referrals: Abhinav Lam MD [Primary Care Provider, Family Practice] - In 1 week Problem List Clinical Impression: Chest pain Patient/Caregiver Discharge Instructions Education Materials: ED Chest Pain, Noncardiac Additional Instructions: Please follow-up with your primary care provider in the next 24 to 48 hours Your cardiac examination today was negative for any acute findings. For any evidence of worsening signs or symptoms return to emergency room immediately Print Language: [place] Island[place] Stand Alone Forms: Charity Award Info., Patient Portal Info Letter PA/BRANCHER Supervising Physician PA/BRANCHER Supervising Physician: Dr. Mcwilliams
== END 2025-03-01 08:35 | disposition home or self-care (01) ==
PROVIDERS: Emergency Provider Nurse Practitioner Family; PCP Family Medicine
DX: R07.9 Chest pain, unspecified (principal); E11.9 Type 2 diabetes mellitus without complications; E78.5 Hyperlipidemia, unspecified; F41.9 Anxiety disorder, unspecified; I10 Essential (primary) hypertension; Z79.84 Long term (current) use of oral hypoglycemic drugs
CPT/HCPCS: 36415; 71045; 80053; 81001; 83880; 84484; 85025; 93005; 99283; A9270

== ENCOUNTER 2025-03-01 10:51 | Emergency (ER) | payer MEDICAID, SELFPAY ==
[2025-03-01 11:13] VITALS: BP 133/75; PULSE 98; RESP 18; TEMP 36.7; O2SAT 96; BMI 30.3
--- NOTE | 2025-03-01 11:23 | PD.EDRME ---
Rapid Medical Screening Exam E Arrival date/time: 03/01/25 10:51 54-year-old male with a history of hypertension, hyperlipidemia, type 2 diabetes presents to the emergency room with a chief complaint of palpitations anxiousness x 2 hours Patient was seen here this morning for the same symptoms I have greeted and performed a focused initial assessment of this patient. A comprehensive ED assessment and evaluation of the patient, analysis of all test results, and completion of the medical decision making process will be conducted by additional ED providers. Chief Complaint: Anxiety Time Seen by Provider: 03/01/25 11:09 Vital signs: Vital Signs Temperature 98.0 F 03/01/25 11:13 Pulse Rate 98 03/01/25 11:13 Respiratory Rate 18 03/01/25 11:13 Blood Pressure 133/75 H 03/01/25 11:13 Pulse Oximetry (%) 96 03/01/25 11:13 Oxygen Delivery Method Room Air 03/01/25 11:13 Vital signs reviewed by provider: Yes Exam: Patient has a strong and regular rhythm S1 and S2 noted Clear bilateral lung sounds Clinical Impression: Chest pain/palpitation/methamphetamine abuse
[2025-03-01 12:15] LABS: Collection Type, Urine Clean Catch; Squamous Epithelial Cell,Urine 0 /hpf (0-5); WBC,Urine 0 /hpf (0-5)
[2025-03-01 12:21] LABS: Basophils # (Auto) 0.0 Thou/mm3 (0.0-0.2); Basophils % (Auto) 0 % (0-2.5); Eosinophils # (Auto) 0.0 Thou/mm3 (0.0-0.5); Eosinophils % (Auto) 0 % (0-10); Hematocrit 35.3 % (41.0-53.0); Hemoglobin 12.6 g/dL (13.5-16.0); Immature Granulocytes Auto 0.02 Thou/mm3 (0.00-0.00); Lymphocytes # (Auto) 2.4 Thou/mm3 (1.0-4.8); Lymphocytes % (Auto) 28 % (10-50); Mean Corpuscular HGB Conc 35.7 g/dl (31.0-37.0); Mean Corpuscular Hemoglobin 30.6 pg (25.0-35.0); Mean Corpuscular Volume 86 fL (80-100); Monocytes # (Auto) 0.7 Thou/mm3 (0.0-0.8); Monocytes % (Auto) 8 % (0-12); Neutrophils # (Auto) 5.5 Thou/mm3 (1.8-7.7); Neutrophils % (Auto) 63 % (37-80); Nucleated Red Blood Cell # 0.00 Thou/mm3 (0.00-0.00); Nucleated Red Blood Cell % 0 /100 WBC (0); Platelet Count 274 Thou/mm3 (140-440); RDW Standard Deviation 40.8 fL (35.1-43.9); Red Blood Count 4.12 Miln/mm3 (4.50-5.90); White Blood Count 8.6 Thou/mm3 (3.8-10.6)
[2025-03-01 12:33] LABS: Amphetamine/Methamp Scrn,U Negative (Negative); Barbiturate Screen,Urine Negative (Negative); Benzodiazepines Screen,Urine Negative (Negative); Benzoylecgonine Screen, Ur Negative (Negative); Fentanyl Screen,Urine Negative (Negative); Opiate Screen,Urine Negative (Negative); THC Screen,Urine Negative (Negative)
--- NOTE | 2025-03-01 12:34 | EDNOTE_ITS ---
<Statement entered by Magdalene Cardenas MD - 03/03/25 17:54> I, Magdalene Cardenas MD, have reviewed the history, exam, and assessment of the patient. I have evaluated the patient independently and agree with the plan of care documented by [ ]. All diagnostic studies were reviewed and discussed. I confirm the diagnosis as documented by the Resident. I was present during the Medical Decision Making for this patient. The patient's plan of care was created between myself and the Resident and consistent with our discussion of the patient's case. ED Anxiety RME/HPI General Chief Complaint: Anxiety Stated Complaint: ANXIETY Time Seen by Provider: 03/01/25 11:09 Arrival date/time: 03/01/25 10:51 RME / HPI RME / HPI narrative: 03/01/25 10:51 Patient is a 54-year-old male with a past medical history of hyperlipidemia, hypertension, history of alcohol use disorder, history of methamphetamine use who presented to the emergency room with a chief complaint of anxiety with racing thoughts and unable to sit still. Patient denied chest pain. Patient denies shortness of breath. Patient denied substance use including methamphetamine. Denied any recent sick contacts. Denied suicidal thoughts or thoughts of harming others. ordered CBC CMP UTOX ordered EKG Impression: Chest pain/palpitation/methamphetamine abuse Related Data Home Medications ?Medication ?Instructions ?Recorded ?Confirmed amlodipine 5 mg tablet 5 mg PO .QHS 05/27/24 diclofenac sodium 1 % topical gel 2.25 inch topical BI D 05/27/24 05/27/24 haloperidol 10 mg tablet 10 mg PO TID 05/27/24 hydroxyzine pamoate 50 mg capsule 50 mg PO TID 5 05/27/24 metformin 500 mg tablet 500 mg PO BID 05/27/2405/27 mirtazapine 30 mg tablet 30 mg PO .QHS 05/27/2405/27 paroxetine HCl 12.5 mg 25 mg PO QAM 05/27/24 tablet,extended release 24 hr propranolol 20 mg tablet 20 mg PO TID 05/27/24 trihexyphenidyl 2 mg tablet 2 mg PO .QHS 05/27/2404/30 Previous Rx's ?Medication ?Instructions ?Recorded atorvastatin 20 mg tablet 20 mg PO QDAY #30 tabs 09/21 olanzapine 20 mg tablet 20 mg PO QDAY #30 tabs 09/21 Allergies Allergy/AdvReac Type Severity Reaction Status Date / Time No Known Allergies Allergy Verified 03/01/25 10:53 Review of Systems Review of Systems Narrative Review of Systems: General appearance: NO weight change, NO fatigue, NO weakness, NO fever, NO chills, NO night sweats, No cough Skin: NO rash, NO itching, NO sores, NO moles HEENT: NO Trauma, NO nausea, NO vomiting, NO visual changes, NO blurry vision, NO double vision, NO tinnitus, NO vertigo, NO ear discharge, NO rhinorrhea, NO stuffiness, NO sneezing, NO allergy, NO epistaxis. NO Hoarseness, NO sore throat, NO swollen neck. Cardiac: NO Palpitations, NO dyspnea on exertion, NO orthopnea, NO paroxysmal nocturnal dyspnea, NO edema Respiratory: NO Shortness of Breath, NO Wheezing, NO Cough, NO Sputum, NO hemoptysis GI:NO appetite, NO nausea, NO vomiting, NO dysphagia, NO changes in bowel frequency, NO stool color, NO diarrhea, NO constipation, NO hemetemesis, NO hemorrhoids, NO melena, NO hematechezia, NO abdominal pain, NO jaundice Renal: NO frequency, NO hesitancy, NO urgency, NO hematuria, NO nocturia, NO incontinence MSK: NO muscle weakness, NO gout, NO arthritis, NO muscle stiffness Neuro: NO headaches, NO tremors, NO weakness, NO paralysis, NO seizures, NO loss of consciousness, NO numbness. Hem: NO anemia, NO easy bruising/bleeding, NO petechiae, NO purpura Endo: NO heat/cold intolerance, NO excessive sweating, NO polyuria, NO polydipsia, NO polyphagia, NO thyroid problems, NO diabetes Pysch: NO mood, YES anxiety, NO depression ED Exam Narrative Physical exam: General Appearance: Alert & Oriented X3, well-nourished male who is lying in bed in mild anxiety HEENT: Skull symmetrical and atraumatic. Conjunctivae pale pink and moist. Pupils equal, round, reactive to light and accommodation (PERRL). External ear without lesion or discharge. Straight, nares patient, mucosa pink, no discharge. No thyroid nodule appreciated. No cervical lymphadenopathy. Cardio: Normal Rate and Rhythm with S1 and S2 heart sounds. No murmurs or extra heart sounds auscultated. No bruits on carotid auscultation. No peripheral edema or cyanosis. Lungs: Symmetric with good expansion. Chest and back non-tender. Breath sounds vesicular without crackles, wheezing or rhonchi Abdomen: Non-tender, Non-distended, Normal Reactive Bowel Sounds Neuro: Alert, cooperative, oriented to person, place, and time. Speech clear. CN grossly intact. Upper motor strength 5/5 and Lower motor strength 5/5. Sensation intact. Course Quality Measures none Orders Category Date Time Status EKG (ED ONLY) *Do not use* NOW Care 03/01/25 11:23 Completed EKG (ED Only) Stat Exams 03/01/25 11:23 Ordered B-Type Natriuretic Peptide Stat Lab 03/01/25 11:41 Received CBC Stat Lab 03/01/25 11:41 Completed Comprehensive Metabolic Panel Stat Lab 03/01/25 11:41 Received Drug Screen,Urine Stat Lab 03/01/25 11:55 Completed LDH (Lactate Dehydrogenase) Stat Lab 03/01/25 11:41 Received Magnesium Stat Lab 03/01/25 11:41 Received Partial Thromboplastin Time Stat Lab 03/01/25 11:41 Received Prothrombin Time with INR Stat Lab 03/01/25 11:41 Received Troponin I Stat Lab 03/01/25 11:41 Received Urinalysis, C/S if Indicated Stat Lab 03/01/25 11:55 Received Vital Signs Vital signs: Vital Signs Temperature 98.0 F 03/01/25 11:13 Pulse Rate 98 03/01/25 11:13 Respiratory Rate 18 03/01/25 11:13 Blood Pressure 133/75 H 03/01/25 11:13 Pulse Oximetry (%) 96 03/01/25 11:13 Oxygen Delivery Method Room Air 03/01/25 11:13 Anxiety Patient data External records reviewed:: [facility] previous records and Other (specify) Clinical information provided by:: patient Social determinants that could affect healthcare access:: substance use Patient has the following chronic illnesses:: Substance use disorder and anxiety How is presenting disease/condition affected by chronic disease/condition?: exacerbated by (history of substance use disorder and anxiety ) Evaluation data The following diagnostics were reviewed and interpreted by me:: lab results and EKG tracing(s) Lab and/or radiology exams considered but not ordered:: none Interpretation Summary: Labs unremarkable including Utox. Medications / Prescriptions Medications or Prescriptions considered but not ordered:: none Medication administrations:: Lorezapam 2 mg PO Consultations Consultation(s) initiated? (list below): No Diagnosis Differential diagnosis anxiety: acute anxiety and other Most likely diagnosis given after review of the tests above:: Anxiety Admission Indicated Admission indicated?: not indicated Explain why admission is indicated or not indicated:: Patient's labs are unremarkable with with negative Utox. Admission Request Was there a request for admission?: No Disposition Plan Disposition Plan: Discharge Discharge Attestation Discharge Attestation: The patient and all family members were given an opportunity to ask questions and understood the discharge instructions. Discharge instructions specifically effects, indications for sooner follow up or return to the emergency department, and the expected course of current diagnosis. Patient condition: Stable Discharge Plan Plan Patient Disposition: HOME (Self Care) Patient condition on transfer: Stable Health Concerns: Instructions: -continue home medication as prescribed -Please follow up with your primary care provider or psychiatrist --Please follow up with your primary care provider within one week of discharge -If your symptoms worsen,please seek immediate medical attention and return to your nearest emergency room -If you do not have a primary care provider, you may follow up at the [facility] at [address], [place] [address], Prescriptions/Referrals Prescriptions/Med Rec: Continued olanzapine 20 mg tablet 20 mg PO QDAY Qty: 30 0RF atorvastatin 20 mg tablet 20 mg PO QDAY Qty: 30 0RF paroxetine HCl 12.5 mg tablet extended release 24 hr 25 mg PO QAM hydroxyzine pamoate 50 mg capsule 50 mg PO TID haloperidol 10 mg tablet 10 mg PO TID propranolol 20 mg tablet 20 mg PO TID metformin 500 mg tablet 500 mg PO BID amlodipine 5 mg tablet 5 mg PO .QHS diclofenac sodium 1 % gel 2.25 inch TOPICAL BID mirtazapine 30 mg tablet 30 mg PO .QHS trihexyphenidyl 2 mg tablet 2 mg PO .QHS Discontinued trihexyphenidyl 2 mg tablet 2 mg PO BID Qty: 60 0RF Rx Instructions: give with food (meal/snack) amlodipine 5 mg tablet 5 mg PO QDAY Qty: 30 0RF mirtazapine 30 mg tablet 30 mg PO .QHS Qty: 30 0RF paroxetine HCl 12.5 mg tablet extended release 24 hr 12.5 mg PO QAM Qty: 30 0RF olanzapine 20 mg tablet 20 mg PO .QHS atorvastatin 20 mg tablet 20 mg PO QDAY Referrals: No Primary/Family,Physician [Primary Care Provider] - In 1 week Problem List Clinical Impression: Anxiety Patient/Caregiver Discharge Instructions Print Language: Hungarian Stand Alone Forms: Charity Award Info., Patient Portal Info Letter
[2025-03-01 12:38] LABS: B-Type Natriuretic Peptide 20 pg/mL (0-100); INR 1.0 (0.9-1.3); Partial Thromboplastin Time 26.8 Seconds (22.0-36.0); Prothrombin Time 11.0 Seconds (9.0-12.2)
[2025-03-01 12:41] LABS: Alanine Aminotransferase 36 U/L (10-49); Albumin, Serum 5.1 gm/dL (3.5-5.0); Albumin/Globulin Ratio 2.0 (1.2-2.2); Alkaline Phosphatase 108 U/L (46-116); Anion Gap 12 (7-16); Aspartate Amino Transferase 41 U/L (0-34); BUN/Creatinine Ratio 5 Ratio (12-20); Bilirubin,Total 0.7 mg/dL (0.3-1.2); Blood Urea Nitrogen 5 mg/dL (9-23); Calcium 9.7 mg/dL (8.3-10.6); Calcium (Corrected) 9.7 mg/dL (8.5-10.1); Carbon Dioxide 24.0 mMol/L (20.0-31.0); Chloride 105 mMol/L (98-107); Creatinine (Component) 1.0 mg/dL (0.6-1.3); Estimated Creatinine Clearance 88.5 mL/min (>60); Globulin 2.5 gm/dL (2.3-3.5); Glucose 94 mg/dL (74-106); LDH (Lactate Dehydrogenase) 239 U/L (120-246); Magnesium 2.0 mg/dL (1.6-2.6); Osmolality,Calculated 278 (275-295); Potassium 3.7 mMol/L (3.4-5.1); Sodium 141 mMol/L (136-145); Total Protein 7.6 gm/dL (5.7-8.2); Troponin I < 0.020 ng/mL (0.0-0.045); eGFR > 60 See Note
[2025-03-01 12:44] LABS: Bilirubin,Urine Negative (Negative); Blood,Urine Negative (Negative); Clarity,Urine Clear (Clear/Hazy); Color,Urine Colorless (Lt Yel-Yel); Culture Indicated,Urine Not Indicated; Glucose, Urine Negative (Negative); Ketones,Urine Negative (Negative); Leukocyte Esterase,Urine Negative (Negative); Nitrite,Urine Negative (Negative); PH,Urine 6.0 (5.0-7.0); Protein,Urine Negative (Neg - Trace); RBC,Urine 1 /hpf (0-3); Specific Gravity,Urine 1.004 (1.001-1.035); Urobilinogen,Urine Negative mg/dL (0.0-1.0)
== END 2025-03-01 13:05 | disposition home or self-care (01) ==
PROVIDERS: Nurse Practitioner Family; Emergency Provider Emergency Medicine
DX: F41.9 Anxiety disorder, unspecified (principal); E78.5 Hyperlipidemia, unspecified; F15.10 Other stimulant abuse, uncomplicated; I10 Essential (primary) hypertension; Z79.84 Long term (current) use of oral hypoglycemic drugs
CPT/HCPCS: 36415; 80053; 80307; 81001; 83615; 83735; 83880; 84484; 85025; 85610; 85730; 93005; 99282; A9270